=== PATIENT | female | born 1945 | race Caucasian/White ===

== ENCOUNTER 2021-07-01 10:00 | Emergency (ER) | payer MEDICARE ==
[2021-07-01] MEDS ORDERED: VOLTAREN ARTHRI20 GM TP (14:31)
[2021-07-01] MEDS ORDERED: BACLOFEN10 MG PO (14:31)
== END 2021-07-01 15:02 | disposition home or self-care (01) ==
LOC: ER1 10:00
DX: M16.12 Unilateral primary osteoarthritis, left hip (principal); G57.02 Lesion of sciatic nerve, left lower limb; J45.909 Unspecified asthma, uncomplicated; Z87.891 Personal history of nicotine dependence; Z88.5 Allergy status to narcotic agent; Z91.041 Radiographic dye allergy status; Z86.711 Personal history of pulmonary embolism; Z86.16 Personal history of COVID-19
CPT/HCPCS: 73522; 93971; 96372; 99284; J1100; J2360

== ENCOUNTER 2021-07-13 10:50 | Emergency (ER) | payer MEDICARE ==
[~2021-07-13 10:50] MED LIST: BACLOFEN10 MG PO; VOLTAREN ARTHRI20 GM TP
[2021-07-13] MEDS ORDERED: PREDNISONE 20 M20 MG PO (12:04)
== END 2021-07-13 12:20 | disposition home or self-care (01) ==
LOC: ER1 10:50
DX: M54.42 Lumbago with sciatica, left side (principal); E78.5 Hyperlipidemia, unspecified; Z88.5 Allergy status to narcotic agent; Z91.048 Other nonmedicinal substance allergy status
CPT/HCPCS: 96372; 99283; J1100; J1885